=== PATIENT | female | born 2000 | race Asian ===

== ENCOUNTER 2019-09-20 16:19 | Emergency (ER) | payer OTHER ==
[~2019-09-20] VITALS: Ht 149.9 cm; Wt 50.8 kg
[2019-09-20 16:39] VITALS: BP 126/74
--- NOTE | 2019-09-20 16:55 | NUR ---
19 Y/O FEMALE C/O NAUSEA + VOMITING X1 DAY. PT STATES SHE STARTED HER MENSTRUAL PERIOD TODAY AND USUALLY FEELS SICK ON HER FIRST DAY, BUT SAYS IT HAS NEVER LASTED THIS LONG. PT STATES SHE HAD 2 EPISODES OF EMESIS AND FEELS VERY WEAK/DIZZY. PT ABLE TO AMBULATE TO BED WITHOUT ASSISTANCE. PT IS AFEBRILE. BOWEL SOUNDS ARE NORMOACTIVE IN ALL QUADRANTS. ABD IS SOFT/NON TENDER. RESP EVEN AND UNLABORED. DENIES COUGH/SOB/CP NO PMH NKA
[2019-09-20] MEDS ORDERED: ONDANSETRON 4 MG/2 ML VIAL IVP ONE (17:30)
[2019-09-20] MEDS ORDERED: NACL 0.9% 1,000 ML IV ONE ×2 (17:30→18:35)
[2019-09-20] MEDS ORDERED: KETOROLAC 30 MG/ML VIAL IVP ONE (18:05)
[2019-09-20 18:13] LABS: ANION GAP 18.8 (8-16); CARBON DIOXIDE 22.9 mmol/L (21-32); CREATININE 0.9 mg/dL (0.6-1.3); POTASSIUM 3.7 mmol/L (3.5-5.1)
[2019-09-20 18:15] LABS: BASOPHILS % (AUTO) 0.3 % (0.0-2.0); HEMATOCRIT 39.7 % (36-48); LYMPHOCYTES # (AUTO) 0.3 K/uL (2.5-16.5); LYMPHOCYTES % (AUTO) 2.9 % (20.5-51.1); MEAN CORPUSCULAR HEMOGLOBIN 29 pg (27-31); MEAN CORPUSCULAR HGB CONC 33 g/dL (33-37); MEAN CORPUSCULAR VOLUME 87.6 fL (80-94); MONOCYTES # (AUTO) 0.3 K/uL (0.8-1.0); MONOCYTES % (AUTO) 2.6 % (1.7-9.3); NEUTROPHILS # (AUTO) 11.6 K/uL (1.8-7.7); NEUTROPHILS % (AUTO) 94.2 % (42.2-75.2); PLATELET COUNT (AUTO) 326 K/uL (140-450); RED BLOOD CELL COUNT(AUTO) 4.54 MIL/uL (4.20-5.40); RED CELL DISTRIBUTION WIDTH 14.1 % (11.6-13.7); WHITE BLOOD COUNT (AUTO) 12.3 K/uL (4.8-10.8)
[2019-09-20 18:19] LABS: ALBUMIN 4.5 g/dL (3.4-5.0); TOTAL BILIRUBIN 0.7 mg/dL (0.0-1.0)
[2019-09-20] MEDS ORDERED: PROCHLORPERAZINE 10 MG/2 ML VIAL IVP ONE (18:25)
[2019-09-20 19:07] VITALS: BP 128/72
--- NOTE | 2019-09-20 19:08 | NUR ---
Patient discharged with v/s stable. Written and verbal after care instructions given and explained. Patient alert, oriented and verbalized understanding of instructions. Ambulatory with steady gait. All questions addressed prior to discharge. ID band removed. Patient advised to follow up with PMD. Rx of ZOFRAN, IBUPROFEN given. Patient educated on indication of medication including possible reaction and side effects. Opportunity to ask questions provided and answered.
== END 2019-09-20 19:08 | disposition home or self-care (01) ==
LOC: MED 16:19
DX: K52.9 Noninfective gastroenteritis and colitis, unspecified (principal)
CPT/HCPCS: 36415; 80053; 81002; 81025; 85025; 96361; 96374; 96375; 99284; J0780; J1885; J2405; J7030